=== PATIENT | male | born 1960 ===

== ENCOUNTER 2017-09-30 02:11 | Emergency (ER) | payer BC ==
[2017-09-30 02:20] VITALS: PULSE 73; RESP 18; TEMP 98; O2SAT 100
[2017-09-30] MEDS ORDERED: DiphenhydrAMINE 50 mg/ml Inj IV STA (02:39)
--- NOTE | 2017-09-30 02:43 | ED PDOC ---
HPI: Allergic Reaction Time Seen by Provider: 09/30/17 02:22 Chief Complaint (Nursing): Allergic Reaction Chief Complaint (Provider): swollen lip History Per: Patient History/Exam Limitations: no limitations Onset/Duration Of Symptoms: Hrs (5) Current Symptoms Are (Timing): Still Present Associated Symptoms: Swelling Home/EMS Treatment: Other (Denise) Additional History Per: Patient Additional Complaint(s): 56 y/o male presents with upper lip swelling x 5 hours. No improvement with Denise taken at onset. Denies difficulty speaking/swallowing, rash, chest pain , shortness of breath, palpitations, known allergen. Past Medical History Reviewed: Historical Data, Nursing Documentation, Vital Signs Vital Signs: Last Vital Signs Temp 98 F 09/30/17 02:15 Pulse 73 09/30/17 02:15 Resp 18 09/30/17 02:15 BP 177/103 H 09/30/17 02:15 Pulse Ox 100 09/30/17 02:15 - Medical History PMH: Diabetes - Surgical History Surgical History: No Surg Hx - Family History Family History: States: No Known Family Hx - Home Medications Home Medications: Ambulatory Orders Medication Instructions Recorded Famotidine [Pepcid] 20 mg PO BID #8 tab 09/30/17 predniSONE [Prednisone] 60 mg PO DAILY #12 tab 09/30/17 - Allergies Allergies/Adverse Reactions: Allergies Allergy/AdvReac Type Severity Reaction Status Date / Time No Known Allergies Allergy Verified 09/30/17 02:15 Review of Systems ROS Statement: Except As Marked, All Systems Reviewed And Found Negative ENT: Positive for: Mouth Swelling Physical Exam - Reviewed Nursing Documentation Reviewed: Yes Vital Signs Reviewed: Yes - Physical Exam Appears: Positive for: Well, Non-toxic, No Acute Distress Head Exam: Positive for: ATRAUMATIC, NORMAL INSPECTION, NORMOCEPHALIC Skin: Positive for: Normal Color, Rash (diffuse upper lip swelling; nontender, no lesions/abrasions noted) Eye Exam: Positive for: Normal appearance ENT: Positive for: Normal ENT Inspection, Other (no lingula swelling. Airway patent). Negative for: Pharyngeal Erythema, Tonsillar Exudate, Tonsillar Swelling Cardiovascular/Chest: Positive for: Regular Rate, Rhythm Respiratory: Positive for: Normal Breath Sounds Gastrointestinal/Abdominal: Positive for: Normal Exam Extremity: Positive for: Normal ROM Neurologic/Psych: Positive for: Alert, Oriented - ECG O2 Sat by Pulse Oximetry: 100 - Progress ED Course And Treament: IV solumedrol, IV pepcid, IV benadryl On re-eval, patient states he is feeling better. Swelling slightly improved. Patient educated on findings, discharged with rx Pepcid, PRednisone. ADvised to continue Denise. Follow up PMD 2-3 days. Return to ED for worsening/concerning symptoms. Disposition - Clinical Impression Clinical Impression: Angioedema - Patient ED Disposition Is Patient to be Admitted: No Counseled Patient/Family Regarding: Diagnosis, Need For Followup, Rx Given - Disposition Disposition: Routine/Home Disposition Time: 04:58 Condition: IMPROVED Prescriptions: Famotidine [Pepcid] 20 mg PO BID #8 tab predniSONE [Prednisone] 60 mg PO DAILY #12 tab Instructions: Angioedema (ED) Forms: [facility] ([place]) Print Language: SLOV[place]
[2017-09-30] MEDS ORDERED: DiphenhydrAMINE 50 mg/ml Inj ONE (02:44)
[2017-09-30 04:18] VITALS: BP 143/80
== END 2017-09-30 05:09 | disposition home or self-care (01) ==
LOC: H.ER 02:11
DX: T78.3XXA Angioneurotic edema, initial encounter (principal); E11.9 Type 2 diabetes mellitus without complications
CPT/HCPCS: 96374; 96375; 99282; J1200; J2930